=== PATIENT | female | born 2000 ===

== ENCOUNTER 2021-05-20 00:37 | Emergency (ER) | payer OTHER, SELFPAY ==
--- NOTE | ~2021-05-20 | XR_ITS ---
EXAMINATION: XR ANKLE, LEFT CLINICAL INFORMATION: Fall COMPARISON: None TECHNIQUE: AP, lateral, and mortise views of the left ankle. FINDINGS: No fracture or dislocation. The ankle mortise is congruent. No ankle joint effusion. The soft tissues are unremarkable. Small Achilles heel spur. XR/XR ankle LT min 3V IMPRESSION: Small Achilles heel spur. Otherwise unremarkable appearance of the left ankle.
--- NOTE | ~2021-05-20 | XR_ITS ---
EXAMINATION: XR HIP, RIGHT CLINICAL INFORMATION: Fall COMPARISON: None TECHNIQUE: Two views of the right hip. Frontal view of the pelvis. FINDINGS: No fracture or dislocation. The hips are well aligned. Joint spaces are maintained. The pelvic rim is intact. The sacroiliac joints and pubic symphysis are intact. Normal bowel gas pattern. XR/XR hip RT min 2V IMPRESSION: No fracture or malalignment.
[2021-05-20 00:39] VITALS: BP 149/63; PULSE 93; RESP 16; TEMP 36.6; O2SAT 100; BMI 29.2
--- NOTE | 2021-05-20 00:56 | ED_ITS ---
HPI - Fall General Chief Complaint: Fall Stated Complaint: fall outside; back & leg pain Time Seen by Provider: 05/20/21 00:52 Source: patient Mode of arrival: ambulatory Limitations: no limitations History of Present Illness MD complaint: fall Onset (ago): day(s) (2) Fall from: standing Fall witnessed: no Place fall occurred: home Loss of consciousness: none Prolonged down time: no Symptoms prior to fall: none Context: tripped/slipped (ice) Location of injury: other (right hip) Location of injury - extremities: left: ankle Severity: mild Quality: dull and aching Associated symptoms (after fall): denies Related Data Allergies Allergy/AdvReac Type Severity Reaction Status Date / Time Penicillins [PCN] Allergy Unknown Verified 05/20/21 00:44 Review of Systems Verdana 4l Review of Systems: Verdana 4d Verdana 4d Constitutional : No Fever, No Chills ENT/Mouth : No Ear Pain, No Hoarseness, No sore throat Eyes: No Eye Pain, No Swelling, No Redness, No Foreign Body Cardiovascular : No Chest Pain, No SOB Respiratory : No Cough, No Dyspnea GastrointestinalGastrointestinal : No Nausea, No Vomiting, No Diarrhea, No abdominal Pain Genitourinary : No Dysuria, No Hematuria Musculoskeletal : positive joint pain, No Myalgias, No Joint Swelling Skin : No Skin lacerations, No rash Neuro : No Weakness, No Numbness, No Loss of Consciousness, No Dizziness, No Headache Psych : No Anxiety/Panic, No Depression Heme/Lymph: no easy bruising, no Lymphadenopathy Endocrine : No Polyuria, No Polydipsia All other systems reviewed and are negative [facility] Past Medical History Attestation statement: The following information was validated with the patient. Medical History Hx of scoliosis Social History Social History (Updated 05/20/21 @ 01:14 by Amy Silva DO) Patient Tobacco Use Status: Never used Tobacco Advance Directives: No Advance Directives Information Provided: No Patient : No Physical Exam Verdana 4l Vital Signs: Verdana 4d Verdana 4d Vital Signs: Verdana 4d Verdana 4Bd Last Vital Signs Verdana 4d Exhibition Specialist New 4d Exhibition Specialist New 4d Temp 98 F 05/20/21 00:39 Exhibition Specialist New 4d Pulse 93 05/20/21 00:39 Exhibition Specialist New 4d Resp 16 05/20/21 00:39 BP 149/63 H 05/20/21 00:39 Pulse Ox 100 05/20/21 00:39 BMI result Body Mass Index 29.2 Appearance: Alert. Oriented X3. No acute distress. Eyes: Pupils equal, round and reactive to light. ENT: Pharynx normal. Neck: Normal inspection. Neck supple. CVS: Normal heart rate and rhythm. Pulses normal. Respiratory: No respiratory distress. Breath sounds normal. Abdomen: Soft and nontender. Back: no midline ttp Skin: Skin warm and dry. Normal skin color. Normal skin turgor. Extremities: No lower extremity edema. No calf ttp L ankle ttp over talus but otherwise no signs of trauma or swelling distal NV intact, R hip reports ttp along iliac crest Neuro: Oriented X 3. No motor deficit. No sensory deficit. Course Course Course Narrative: negative xrays stable for DC MDM - Fall MDM Narrative Medical decision making narrative: 20 yo female with fall 2 days ago c/o L ankle injury and R hip injury no head injury will need xrays of R hip and ankle has no back pain at this time no other injuries. Anticipate DC home if xrays negative Discharge Plan Discharge Clinical Impression: Hip strain Qualifiers: Encounter type: initial encounter Laterality: right Qualified Code(s): S76.011A - Strain of muscle, fascia and tendon of right hip, initial encounter Ankle strain Qualifiers: Encounter type: initial encounter Laterality: left Qualified Code(s): S96.912A - Strain of unspecified muscle and tendon at ankle and foot level, left foot, initial encounter Patient Disposition: Home, Self-Care Instructions: Ankle Strain (ED), Hip Sprain (ED) Additional Instructions: return to ED for any worsening symptoms or concerns negative fractures on xray Stand Alone Forms: Work/School Release
== END 2021-05-20 01:41 | disposition home or self-care (01) ==
PROVIDERS: Emergency Provider Emergency Medicine
DX: S96.912A Strain of unspecified muscle and tendon at ankle and foot level, left foot, initial encounter (principal); S76.011A Strain of muscle, fascia and tendon of right hip, initial encounter; S39.012A Strain of muscle, fascia and tendon of lower back, initial encounter; M25.572 Pain in left ankle and joints of left foot; M25.571 Pain in right ankle and joints of right foot; W01.0XXA Fall on same level from slipping, tripping and stumbling without subsequent striking against object, initial encounter; Y93.9 Activity, unspecified; Y92.9 Unspecified place or not applicable; Y99.9 Unspecified external cause status
CPT/HCPCS: 73502; 73610; 99283

== ENCOUNTER 2022-04-26 22:01 | Emergency (ER) | payer OTHER, SELFPAY ==
[2022-04-26 22:07] VITALS: BP 135/75; PULSE 116; RESP 20; TEMP 36.7; O2SAT 99; BMI 26.5
[2022-04-26 22:55] LABS: Influenza A Negative (Negative); Influenza B2 Negative (Negative)
[2022-04-26 22:56] LABS: COVID-19 Test Negative (Negative); IDNOW Serial# BCCEAD1C
[2022-04-26 22:57] LABS: IDNOW Serial# 6674DD1D
--- NOTE | 2022-04-26 23:49 | ED.URI ---
HPI - URI/Sore Throat General Chief Complaint: Upper Respiratory Symptoms Stated Complaint: fever,sore throat, 7 wks Time Seen by Provider: 04/26/22 23:09 Source: patient Mode of arrival: ambulatory Limitations: no limitations History of Present Illness HPI Narrative: Patient about 7 weeks complaining of cold symptoms started the yesterday with runny nose and sore throat occasional cough also complaining of slight pain in the right lower abdomen no vaginal discharge no fever or chills Related Data Allergies Allergy/AdvReac Type Severity Reaction Status Date / Time Penicillins [PCN] Allergy Unknown Verified 05/20/21 00:44 Review of Systems Review of Systems: Yes all other systems are reviewed and are negative [facility] Past Medical History Medical History Hx of scoliosis Social History Social History Patient Tobacco Use Status: Never used Tobacco Advance Directives: No Physical Exam Vital Signs: Vital Signs: Last Vital Signs Temp 99.0 F 04/27/22 01:03 Pulse 109 H 04/27/22 01:03 Resp 18 04/27/22 01:03 BP 127/57 L 04/27/22 01:03 Pulse Ox 100 04/27/22 01:03 O2 Del Method 04/27/22 01:03 BMI result Body Mass Index 26.5 Appearance: Alert. Oriented X3. No acute distress. ENT: Pharynx normal. Oral Mucosa moist clear rhinorrhea Neck: Normal inspection. Neck supple. CVS: Normal heart rate and rhythm. Pulses normal. Respiratory: No respiratory distress. Equal air entry bilateral, no wheezing/rales/rhonchi abd; soft slight tenderness right mid abdomen no rebound tenderness or guarding McBurney signs negative Skin: Skin warm and dry. Normal skin color. Normal skin turgor. Extremities: No lower extremity edema. Neuro: Oriented X 3. Medical Decision Making Lab Data MDM Lab Attestation statement: I reviewed the patient's lab results. Labs: Lab Results 04/26/22 04/26/22 04/26/22 Range/Units 22:13 22:13 22:13 Urine Color Urine Appearance Urine pH (5.0-9.0) Ur Specific [place] (1.005-1.025) Urine Protein (Neg-Trace) mg/dL Urine Glucose (UA) (Negative) mg/dL Urine Ketones (Negative) mg/dL Urine Blood (Negative) Urine Nitrite (Negative) Ur Leukocyte Esterase (Negative) Urine RBC (0-2) /HPF Urine WBC (0-5) /HPF Ur Squamous Epith Cells (0-2) /HPF Urine Bacteria (None Seen) Hyaline Casts (0-2) /LPF COVID-19 ([facility]) Negative (Negative) COVID-19 Clin Com See Note Influenza Type A (IVONE) Negative (Negative) Influenza Type B (IVONE) Negative (Negative) Influenza A & B Note See Note S. pyogenes GrpA IVONE Negative (Negative) 04/27/22 Range/Units 00:23 Urine Color Yellow Urine Appearance Clear Urine pH 5.5 (5.0-9.0) Ur Specific [place] 1.020 (1.005-1.025) Urine Protein Trace (Neg-Trace) mg/dL Urine Glucose (UA) Negative (Negative) mg/dL Urine Ketones >=160 (Negative) mg/dL Urine Blood Negative (Negative) Urine Nitrite Negative (Negative) Ur Leukocyte Esterase Small (1+) H (Negative) Urine RBC 0-2 (0-2) /HPF Urine WBC 0-5 (0-5) /HPF Ur Squamous Epith Cells 3-5 (0-2) /HPF Urine Bacteria 1+ (None Seen) Hyaline Casts 0-2 (0-2) /LPF COVID-19 ([facility]) (Negative) COVID-19 Clin Com Influenza Type A (IVONE) (Negative) Influenza Type B (IVONE) (Negative) Influenza A & B Note S. pyogenes GrpA IVONE (Negative) Discharge Plan Discharge Clinical Impression: Viral infection Patient Disposition: Home, Self-Care Instructions: Viral Syndrome (ED) Additional Instructions: Drink plenty of fluids social distancing as advised Take Tylenol for fever/ pain
[2022-04-27 00:30] LABS: Appearance Urine Clear; Color Urine Yellow; Glucose Urine UA Negative (Negative); Leukocyte Esterase Urine Small (1+) (Negative); Nitrite Urine Negative (Negative); PH 5.5 (5.0-9.0); UMIC TRIGGER UACC YES; Urine Blood Negative (Negative); Urine Ketones >=160 mg/dL (Negative); Urine Protein Trace mg/dL (Neg-Trace)
[2022-04-27 00:42] LABS: Bacteria Urine 1+ (None Seen); Hyaline Casts Urine 0-2 /LPF (0-2); RBC Urine 0-2 /HPF (0-2); UACC Culture Trigger YES; WBC Urine 0-5 /HPF (0-5)
[2022-04-27 01:03] VITALS: BP 127/57; PULSE 109; RESP 18; TEMP 37.2; O2SAT 100
[2022-04-27 01:39] LABS: IDNOW Serial# 6674DD1D; Strep A Nucleic Acid Negative (Negative)
== END 2022-04-27 02:47 | disposition home or self-care (01) ==
PROVIDERS: Emergency Provider Internal Medicine; PCP Pediatrics
DX: O98.511 Other viral diseases complicating pregnancy, first trimester (principal); R50.9 Fever, unspecified; Z3A.01 Less than 8 weeks gestation of pregnancy; Z20.822 Contact with and (suspected) exposure to COVID-19
CPT/HCPCS: 81001; 87086; 87502; 87635; 87651; 99283

== ENCOUNTER 2022-05-01 14:16 | Emergency (ER) | payer OTHER, SELFPAY ==
--- NOTE | ~2022-05-01 | US_ITS ---
EXAMINATION: US OBSTETRICAL ULTRASOUND CLINICAL INFORMATION: Vaginal spotting at 7 weeks of gestation. LMP of 03/12/2022. COMPARISON: None. TECHNIQUE: Sonographic imaging of the pelvis performed using transabdominal and transvaginal transducers. FINDINGS: The anteflexed, anteverted uterus and cervix have normal echotexture. No evidence of uterine leiomyoma. Within the endometrium, there is a well-formed gestational sac, normal 0.3 cm diameter yolk sac and single pole. The pole has a heart rate of 70 - 74 bpm and crown-rump length of 0.57 cm, corresponding to an estimated gestational age of 6 weeks, 3 days and estimated date of delivery of 12/22/2022. No evidence of subchorionic hemorrhage. The ovaries have normal size and echotexture. The right ovary is 2.7 x 2.1 x 2.6 cm and left ovary 2.5 x 1.7 x 2.2 cm. Color Doppler images show grossly normal flow within each ovary. No adnexal mass. No pelvic free fluid. US/US OB <= 14 weeks fetus IMPRESSION: * Single viable intrauterine gestation is present. The estimated gestational age is 6 weeks, 3 days. * No evidence of subchorionic hemorrhage. * bradycardia is noted. bradycardia can be associated with an increased likelihood of first trimester demise.
[2022-05-01 14:17] VITALS: BP 154/76; PULSE 98; RESP 18; TEMP 36.3; O2SAT 100; BMI 26.7
--- NOTE | 2022-05-01 14:17 | ED_ITS ---
HPI - General Chief complaint: General Medical <RAFAEL Delong - Last Filed: 05/01/22 14:21> Stated complaint: 7 weeks preg/spotting <RAFAEL Delong - Last Filed: 05/01/22 14:21> Time Seen by Provider: 05/01/22 14:39 <RAFAEL Delong - Last Filed: 05/01/22 14:21> Source: patient <RAFAEL Almodovar Last Filed: 05/01/22 17:36> Mode of arrival: ambulatory <RAFAEL Almodovar Last Filed: 05/01/22 17:36> Limitations: no limitations <RAFAEL Almodovar Last Filed: 05/01/22 17:36> History of Present Illness HPI Narrative: Patient is a 21 year old assigned female at with a history of miscarriage presenting to the emergency department today with vaginal spotting. Patient states that she is 7 weeks and this morning she woke up with a small amount of bloody vaginal spotting. Patient states that she has a history of a miscarriage. Patient states that she does have an OB she follows with an has an appointment next Sunday. Patient denies any dizziness, lightheadedness, abdominal pain, nausea, vomiting, fever, chills, blurry vision, double vision, loss of vision, chest pain, difficulty breathing, shortness of breath, back pain, night sweats, pain with urination, increased urinary frequency, increased urinary urgency, blood in her stool, syncope or a near syncopal episode, recent trauma or falls, bowel incontinence, bladder incontinence, bowel retention, bladder retention, or any other complaints at this time. <RAFAEL Almodovar - Last Filed: 05/01/22 17:36> MD Complaint: vaginal bleeding <RAFAEL Almodovar Last Filed: 05/01/22 17:36> Onset (ago): hour(s) <RAFAEL Almodovar Last Filed: 05/01/22 17:36> Pain Consistency: intermittent and now resolved <RAFAEL Almodovar Last Filed: 05/01/22 17:36> Severity: mild <RAFAEL Almodovar Last Filed: 05/01/22 17:36> Severity scale (1-10): 1 <RAFAEL Almodovar - Last Filed: 05/01/22 17:36> Relieving factors: none <RAFAEL Almodovar - Last Filed: 05/01/22 17:36> Exacerbating factors: none <RAFAEL Almodovar - Last Filed: 05/01/22 17:36> Associated symptoms: vaginal bleeding (spotting - now resolved) <RAFAEL Almodovar - Last Filed: 05/01/22 17:36> Vaginal bleeding: light <RAFAEL Almodovar - Last Filed: 05/01/22 17:36> Related Data Allergies/Adverse reactions: Allergies Allergy/AdvReac Type Severity Reaction Status Date / Time Penicillins [PCN] Allergy Unknown Verified 05/20/21 00:44 <RAFAEL Delong - Last Filed: 05/01/22 14:21> Review of Systems Constitutional: Constitutional: Reports no additional constitutional complaints, Denies chills, Denies fever(s) and Denies night sweats <RAFAEL Almodovar - Last Filed: 05/01/22 17:36> Eyes: Eyes: Reports no additional eye complaints, Denies blurry vision, Denies change in vision, Denies diplopia, Denies eye discharge, Denies loss of vision and Denies eye pain <RAFAEL Almodovar - Last Filed: 05/01/22 17:36> ENT: Denies dizziness <RAFAEL Almodovar - Last Filed: 05/01/22 17:36> Cardiovascular: Cardiovascular: Reports no additional cardiovascular complaints, Denies chest pain, Denies lightheadedness, Denies Loss of Consciousness and Denies dyspnea <RAFAEL Almodovar - Last Filed: 05/01/22 17:36> Respiratory: Respiratory: Reports no additional respiratory complaints and Denies dyspnea <RAFAEL Almodovar - Last Filed: 05/01/22 17:36> Gastrointestinal: Gastrointestinal: Reports no additional gastrointestinal complaints, Denies abdominal pain, Denies melena, Denies hematochezia, Denies change in bowel habits and Denies change in stool character <RAFAEL Almodovar - Last Filed: 05/01/22 17:36> Genitourinary: Genitourinary: Denies urinary frequency, Denies dysuria, Denies urinary incontinence, Denies urinary hesitancy and Denies urinary urgency <RAFAEL Almodovar - Last Filed: 05/01/22 17:36> Comments: light vaginal spotting <RAFAEL Almodovar - Last Filed: 05/01/22 17:36> Musculoskeletal: Musculoskeletal: Reports no additional musculoskeletal complaints, Denies numbness and Denies tingling <RAFAEL Almodovar - Last Filed: 05/01/22 17:36> Neurologic: Denies dizziness, Denies loss of vision, Denies numbness and Denies tingling <RAFAEL Almodovar - Last Filed: 05/01/22 17:36> Psychiatric: Psychiatric: Reports no additional psychiatric complaints <RAFAEL Almodovar - Last Filed: 05/01/22 17:36> Endocrine: Endocrine: Reports no additional endocrine complaints <RAFAEL Almodovar - Last Filed: 05/01/22 17:36> Hematologic/Lymphatic: Hematologic/Lymphatic: Reports no additional hematologic/lymphatic complaints <RAFAEL Almodovar - Last Filed: 05/01/22 17:36> Allergic/Immunologic: Allergic/Immunologic: Reports no additional allergic/immunologic complaints <RAFAEL Almodovar - Last Filed: 05/01/22 17:36> PMFSH Past Medical History Attestation statement: The following information was validated with the patient. <RAFAEL Almodovar - Last Filed: 05/01/22 17:36> Source: old records reviewed and nursing notes reviewed <RAFAEL Almodovar - Last Filed: 05/01/22 17:36> Medical History: Medical History Hx of scoliosis <RAFAEL Delong - Last Filed: 05/01/22 14:21> Social History Social History: Social History Patient Tobacco Use Status: Never used Tobacco Advance Directives: No Advance Directives Information Provided: No <RAFAEL Delong - Last Filed: 05/01/22 14:21> Physical Exam Vital Signs: Vital Signs: Last Vital Signs Temp 97.4 F 05/01/22 14:17 Pulse 80 05/01/22 17:16 Resp 18 05/01/22 14:17 BP 101/60 05/01/22 17:16 Pulse Ox 100 05/01/22 17:16 O2 Del Method 05/01/22 17:16 BMI result Body Mass Index 26.7 <RAFAEL Delong - Last Filed: 05/01/22 14:21> Vital Signs: Last Vital Signs Temp 97.4 F 05/01/22 14:17 Pulse 80 05/01/22 17:16 Resp 18 05/01/22 14:17 BP 101/60 05/01/22 17:16 Pulse Ox 100 05/01/22 17:16 O2 Del Method 05/01/22 17:16 BMI result Body Mass Index 26.7 <RAFAEL Almodovar - Last Filed: 05/01/22 17:36> Const: General: cooperative, no acute distress, alert and awake <RAFAEL Almodovar - Last Filed: 05/01/22 17:36> Nutritional Appearance: well nourished <RAFAEL Almodovar - Last Filed: 05/01/22 17:36> Orientation/consciousness: patient oriented x3 <RAFAEL Almodovar - Last Filed: 05/01/22 17:36> Limitations: no limitations <RAFAEL Almodovar - Last Filed: 05/01/22 17:36> HEENT: Head: Yes normal to inspection and Yes atraumatic <RAFAEL Almodovar - Last Filed: 05/01/22 17:36> Ears: hearing grossly normal bilaterally and external ears normal <RAFAEL Almodovar - Last Filed: 05/01/22 17:36> General nose exam: Normal external nose present, no nasal discharge noted and no epistaxis <RAFAEL Almodovar - Last Filed: 05/01/22 17:36> Face and sinus: Yes normal facial exam, No abrasion and No laceration <RAFAEL Almodovar - Last Filed: 05/01/22 17:36> Mouth: Normal oral and palatal mucosa present, no drooling and no muffled voice <RAFAEL Almodovar - Last Filed: 05/01/22 17:36> Eyes: General: appearance normal, both eyes and all related structures <RAFAEL Almodovar - Last Filed: 05/01/22 17:36> Periorbital: periorbital findings normal <Eusebia Francisco PA - Last Filed: 05/01/22 17:36> Eyelids: Yes eyelids normal <Eusebia Francisco PA - Last Filed: 05/01/22 17:36> Conjunctivae: conjunctivae normal <Eusebia Francisco PA - Last Filed: 05/01/22 17:36> Pupils: Equal, round and reactive pupils present <Eusebia Francisco PA - Last Filed: 05/01/22 17:36> EOM: EOMs intact bilaterally <Eusebia Francisco PA - Last Filed: 05/01/22 17:36> Neck: Neck: Yes normal visual inspection, Yes full ROM and Yes no lymphadenopathy <Eusebia Francisco PA - Last Filed: 05/01/22 17:36> Chest: Chest palpation & inspection: normal inspection of the chest <Eusebia Francisco PA - Last Filed: 05/01/22 17:36> Resp: Effort & Inspection: normal respiratory effort and able to speak in complete sentences <Eusebia Francisco PA - Last Filed: 05/01/22 17:36> Auscultation: clear to auscultation bilaterally <Eusebia Francisco PA - Last Filed: 05/01/22 17:36> Cardio: Rate: regular rate <Eusebia Francisco PA - Last Filed: 05/01/22 17:36> Rhythm: regular rhythm <Eusebia Francisco PA - Last Filed: 05/01/22 17:36> GI: Inspection: Yes normal to inspection <Eusebia Francisco PA - Last Filed: 05/01/22 17:36> Palpation (GI): Soft to palpation, not firm, nontender and no guarding <Eusebia Francisco PA - Last Filed: 05/01/22 17:36> Neuro: General: patient oriented x3 and moves all extremities <Esuebia Francisco PA - Last Filed: 05/01/22 17:36> Cranial nerves: Yes Equal, round and reactive pupils present <Eusebia Francisco PA - Last Filed: 05/01/22 17:36> Cognition (Neuro): normal cognition <Eusebia Francisco PA - Last Filed: 05/01/22 17:36> Motor exam (neuro): 5/5 motor strength present throughout <RAFAEL Almodovar - Last Filed: 05/01/22 17:36> Sensory Exam: Normal double simultaneous stimulation for sensation <RAFAEL Almodovar - Last Filed: 05/01/22 17:36> Coordination: [id number] test normal <RAFAEL Almodovar - Last Filed: 05/01/22 17:36> Extrem: General: Yes normal to inspection, Yes full ROM and Yes capillary refill normal <RAFAEL Almodovar - Last Filed: 05/01/22 17:36> Psych: Appearance: grossly normal <RAFAEL Almodovar - Last Filed: 05/01/22 17:36> Mental Status: mental status grossly normal <RAFAEL Almodovar - Last Filed: 05/01/22 17:36> Affect: normal affect <RAFAEL Almodovar - Last Filed: 05/01/22 17:36> Attitude: cooperative <RAFAEL Almodovar - Last Filed: 05/01/22 17:36> Thought process: Normal thought process present <RAFAEL Almodovar - Last Filed: 05/01/22 17:36> Thought content: Normal thought content present <RAFAEL Almodovar - Last Filed: 05/01/22 17:36> Insight: Good insight present (Psych) <RAFAEL Almodovar - Last Filed: 05/01/22 17:36> Course Course Course Narrative: RME--21yo F w/PMHx @7 weeks gestation presenting to ED complaining of vaginal spotting since this morning. Admits to history of miscarriage in the past. Denies filling pads, abdominal pain, nausea, vomiting, vaginal discharge LMP 03/12 Labs, hCG, UA, Rh, Ob ultrasound ordered <RAFAEL Delong - Last Filed: 05/01/22 14:21> Medical Decision Making Medical Decision Making MDM Narrative: Patient is a 21 year old assigned female at with a history of miscarriage presenting to the emergency department today with light vaginal spotting. Patient's physical exam was unremarkable. Patient's blood work was unremarkable. Patient's urine showed no acute process. Patient's US showed an intrauterine however, it showed a slowed heart rate. Patient states that she has gotten a rhogam shot previously. I explained my physical exam findings as well as all test results to the patient. I answered all questions asked by the patient. I stressed the importance of the patient taking her medication as prescribed. I stressed the importance of the patient following up with her primary care provider and her OBGYN. I stressed the importance of the patient returning to the emergency department immediately if her symptoms were to worsen or if she were to develop any dizziness, shortness of breath, difficulty breathing, chest pain, blurry vision, loss of vision, nausea, vomiting, abdominal pain, fever, chills, back pain, or any other complaints. Patient verbalized agreement and understanding with this treatment plan and discharge. <RAFAEL Almodovar - Last Filed: 05/01/22 17:36> Differential Diagnosis Differential Diagnoses: The differential diagnosis associated with the presentation includes <RAFAEL Almodovar - Last Filed: 05/01/22 17:36> vaginal bleeding, threatened miscarriage <RAFAEL Almodovar - Last Filed: 05/01/22 17:36> Lab Data MDM Lab Attestation statement: I reviewed the patient's lab results. <RAFAEL Almodovar - Last Filed: 05/01/22 17:36> Result Diagrams: 05/01/22 14:28 05/01/22 14:28 <RAFAEL Delong - Last Filed: 05/01/22 14:21> Labs: Lab Results 05/01/22 05/01/22 05/01/22 Range/Units 14:28 14:28 14:28 WBC 7.9 (4.8-10.8) X10*3/uL RBC 4.29 (4.20-5.50) X10*6/uL Hgb 12.8 (12.0-16.0) g/dl Hct 36.4 L (37.0-47.0) % MCV 84.8 (80.0-98.0) fL MCH 29.8 (27.0-33.0) pg MCHC 35.2 H (31.0-35.0) g/dl RDW 11.3 (11.0-16.0) % Plt Count 282 (160-400) X10*3/uL MPV 9.8 (9.4-12.3) fL Immature Gran % (Auto) 0.4 (0.0-0.4) % Neut % (Auto) 62.7 (45-73) % Lymph % (Auto) 28.0 (20-40) % [place] % (Auto) 7.3 (2-11) % Eos % (Auto) 1.3 (0-4) % Baso % (Auto) 0.3 (0-2) % Lymph # (Auto) 2.2 (1.2-4.9) X10*3/uL [place] # (Auto) 0.6 (0.1-1.2) X10*3/uL Eos # (Auto) 0.1 (0.0-0.4) X10*3/uL Baso # (Auto) 0.0 (0.0-0.2) X10*3/uL Abs Immat Gran (auto) 0.03 (0.00-0.03) X10*3/uL Absolute Neuts (auto) 5.0 (2.0-8.3) x10*3/uL Absolute Nucleated RBC 0.000 (0.0-0.012) X10*3/uL Nucleated RBC % (auto) 0.0 (0.0-0.2) /100WBC Sodium 138 (135-145) mmol/L Potassium 3.7 (3.3-5.1) mmol/L Chloride 108 (96-108) mmol/L Carbon Dioxide 23 (22-29) mmol/L Anion Gap 11 L (12-20) BUN 5 L (9-16) mg/dL Creatinine 0.56 (0.5-1.4) mg/dL Estim Creat Clear Calc 131.9 Estimated GFR > 60 Random Glucose 80 (60-115) mg/dL Calcium 9.4 (8.4-10.2) mg/dL Total Bilirubin 0.8 (0.0-1.0) mg/dL Direct Bilirubin 0.3 (0.0-0.5) mg/dL AST 11 (5-31) U/L ALT 8 (0-31) U/L Alkaline Phosphatase 57 (39-117) U/L Total Protein 7.2 (6.5-8.0) g/dL Albumin 4.5 (3.5-5.0) g/dL Lipase 19 (8-78) U/L Beta HCG, Quant 83058 mIU/mL Urine Color Urine Appearance Urine pH (5.0-9.0) Ur Specific [place] (1.005-1.025) Urine Protein (Neg-Trace) mg/dL Urine Glucose (UA) (Negative) mg/dL Urine Ketones (Negative) mg/dL Urine Blood (Negative) Urine Nitrite (Negative) Ur Leukocyte Esterase (Negative) Urine RBC (0-2) /HPF Urine WBC (0-5) /HPF Ur Squamous Epith Cells (0-2) /HPF Urine Bacteria (None Seen) Hyaline Casts (0-2) /LPF Blood Type O Negative 05/01/22 Range/Units 14:28 WBC (4.8-10.8) X10*3/uL RBC (4.20-5.50) X10*6/uL Hgb (12.0-16.0) g/dl Hct (37.0-47.0) % MCV (80.0-98.0) fL MCH (27.0-33.0) pg MCHC (31.0-35.0) g/dl RDW (11.0-16.0) % Plt Count (160-400) X10*3/uL MPV (9.4-12.3) fL Immature Gran % (Auto) (0.0-0.4) % Neut % (Auto) (45-73) % Lymph % (Auto) (20-40) % [place] % (Auto) (2-11) % Eos % (Auto) (0-4) % Baso % (Auto) (0-2) % Lymph # (Auto) (1.2-4.9) X10*3/uL [place] # (Auto) (0.1-1.2) X10*3/uL Eos # (Auto) (0.0-0.4) X10*3/uL Baso # (Auto) (0.0-0.2) X10*3/uL Abs Immat Gran (auto) (0.00-0.03) X10*3/uL Absolute Neuts (auto) (2.0-8.3) x10*3/uL Absolute Nucleated RBC (0.0-0.012) X10*3/uL Nucleated RBC % (auto) (0.0-0.2) /100WBC Sodium (135-145) mmol/L Potassium (3.3-5.1) mmol/L Chloride (96-108) mmol/L Carbon Dioxide (22-29) mmol/L Anion Gap (12-20) BUN (9-16) mg/dL Creatinine (0.5-1.4) mg/dL Estim Creat Clear Calc Estimated GFR Random Glucose (60-115) mg/dL Calcium (8.4-10.2) mg/dL Total Bilirubin (0.0-1.0) mg/dL Direct Bilirubin (0.0-0.5) mg/dL AST (5-31) U/L ALT (0-31) U/L Alkaline Phosphatase (39-117) U/L Total Protein (6.5-8.0) g/dL Albumin (3.5-5.0) g/dL Lipase (8-78) U/L Beta HCG, Quant mIU/mL Urine Color Yellow Urine Appearance Clear Urine pH 6.5 (5.0-9.0) Ur Specific [place] <= 1.005 (1.005-1.025) Urine Protein Negative (Neg-Trace) mg/dL Urine Glucose (UA) Negative (Negative) mg/dL Urine Ketones Negative (Negative) mg/dL Urine Blood Trace H (Negative) Urine Nitrite Negative (Negative) Ur Leukocyte Esterase Negative (Negative) Urine RBC 0-2 (0-2) /HPF Urine WBC 0-5 (0-5) /HPF Ur Squamous Epith Cells 0-2 (0-2) /HPF Urine Bacteria None Seen (None Seen) Hyaline Casts 0-2 (0-2) /LPF Blood Type <RAFAEL Delong - Last Filed: 05/01/22 14:21> Lab Results 05/01/22 05/01/22 05/01/22 Range/Units 14:28 14:28 14:28 WBC 7.9 (4.8-10.8) X10*3/uL RBC 4.29 (4.20-5.50) X10*6/uL Hgb 12.8 (12.0-16.0) g/dl Hct 36.4 L (37.0-47.0) % MCV 84.8 (80.0-98.0) fL MCH 29.8 (27.0-33.0) pg MCHC 35.2 H (31.0-35.0) g/dl RDW 11.3 (11.0-16.0) % Plt Count 282 (160-400) X10*3/uL MPV 9.8 (9.4-12.3) fL Immature Gran % (Auto) 0.4 (0.0-0.4) % Neut % (Auto) 62.7 (45-73) % Lymph % (Auto) 28.0 (20-40) % [place] % (Auto) 7.3 (2-11) % Eos % (Auto) 1.3 (0-4) % Baso % (Auto) 0.3 (0-2) % Lymph # (Auto) 2.2 (1.2-4.9) X10*3/uL [place] # (Auto) 0.6 (0.1-1.2) X10*3/uL Eos # (Auto) 0.1 (0.0-0.4) X10*3/uL Baso # (Auto) 0.0 (0.0-0.2) X10*3/uL Abs Immat Gran (auto) 0.03 (0.00-0.03) X10*3/uL Absolute Neuts (auto) 5.0 (2.0-8.3) x10*3/uL Absolute Nucleated RBC 0.000 (0.0-0.012) X10*3/uL Nucleated RBC % (auto) 0.0 (0.0-0.2) /100WBC Sodium 138 (135-145) mmol/L Potassium 3.7 (3.3-5.1) mmol/L Chloride 108 (96-108) mmol/L Carbon Dioxide 23 (22-29) mmol/L Anion Gap 11 L (12-20) BUN 5 L (9-16) mg/dL Creatinine 0.56 (0.5-1.4) mg/dL Estim Creat Clear Calc 131.9 Estimated GFR > 60 Random Glucose 80 (60-115) mg/dL Calcium 9.4 (8.4-10.2) mg/dL Total Bilirubin 0.8 (0.0-1.0) mg/dL Direct Bilirubin 0.3 (0.0-0.5) mg/dL AST 11 (5-31) U/L ALT 8 (0-31) U/L Alkaline Phosphatase 57 (39-117) U/L Total Protein 7.2 (6.5-8.0) g/dL Albumin 4.5 (3.5-5.0) g/dL Lipase 19 (8-78) U/L Beta HCG, Quant 69423 mIU/mL Urine Color Urine Appearance Urine pH (5.0-9.0) Ur Specific [place] (1.005-1.025) Urine Protein (Neg-Trace) mg/dL Urine Glucose (UA) (Negative) mg/dL Urine Ketones (Negative) mg/dL Urine Blood (Negative) Urine Nitrite (Negative) Ur Leukocyte Esterase (Negative) Urine RBC (0-2) /HPF Urine WBC (0-5) /HPF Ur Squamous Epith Cells (0-2) /HPF Urine Bacteria (None Seen) Hyaline Casts (0-2) /LPF Blood Type O Negative 05/01/22 Range/Units 14:28 WBC (4.8-10.8) X10*3/uL RBC (4.20-5.50) X10*6/uL Hgb (12.0-16.0) g/dl Hct (37.0-47.0) % MCV (80.0-98.0) fL MCH (27.0-33.0) pg MCHC (31.0-35.0) g/dl RDW (11.0-16.0) % Plt Count (160-400) X10*3/uL MPV (9.4-12.3) fL Immature Gran % (Auto) (0.0-0.4) % Neut % (Auto) (45-73) % Lymph % (Auto) (20-40) % [place] % (Auto) (2-11) % Eos % (Auto) (0-4) % Baso % (Auto) (0-2) % Lymph # (Auto) (1.2-4.9) X10*3/uL [place] # (Auto) (0.1-1.2) X10*3/uL Eos # (Auto) (0.0-0.4) X10*3/uL Baso # (Auto) (0.0-0.2) X10*3/uL Abs Immat Gran (auto) (0.00-0.03) X10*3/uL Absolute Neuts (auto) (2.0-8.3) x10*3/uL Absolute Nucleated RBC (0.0-0.012) X10*3/uL Nucleated RBC % (auto) (0.0-0.2) /100WBC Sodium (135-145) mmol/L Potassium (3.3-5.1) mmol/L Chloride (96-108) mmol/L Carbon Dioxide (22-29) mmol/L Anion Gap (12-20) BUN (9-16) mg/dL Creatinine (0.5-1.4) mg/dL Estim Creat Clear Calc Estimated GFR Random Glucose (60-115) mg/dL Calcium (8.4-10.2) mg/dL Total Bilirubin (0.0-1.0) mg/dL Direct Bilirubin (0.0-0.5) mg/dL AST (5-31) U/L ALT (0-31) U/L Alkaline Phosphatase (39-117) U/L Total Protein (6.5-8.0) g/dL Albumin (3.5-5.0) g/dL Lipase (8-78) U/L Beta HCG, Quant mIU/mL Urine Color Yellow Urine Appearance Clear Urine pH 6.5 (5.0-9.0) Ur Specific [place] <= 1.005 (1.005-1.025) Urine Protein Negative (Neg-Trace) mg/dL Urine Glucose (UA) Negative (Negative) mg/dL Urine Ketones Negative (Negative) mg/dL Urine Blood Trace H (Negative) Urine Nitrite Negative (Negative) Ur Leukocyte Esterase Negative (Negative) Urine RBC 0-2 (0-2) /HPF Urine WBC 0-5 (0-5) /HPF Ur Squamous Epith Cells 0-2 (0-2) /HPF Urine Bacteria None Seen (None Seen) Hyaline Casts 0-2 (0-2) /LPF Blood Type <RAFAEL Almodovar - Last Filed: 05/01/22 17:36> Radiology Impression Discussion of test interpretation with radiology: I have reviewed the radiologist's reading. <RAFAEL Almodovar - Last Filed: 05/01/22 17:36> Radiologist Impression: My interpretation is in agreement with the radiologist's impression of this imaging study. EXAMINATION:? US OBSTETRICAL ULTRASOUND CLINICAL INFORMATION:? Vaginal spotting at 7 weeks of gestation. LMP of 03/12/2022. COMPARISON:? None.? TECHNIQUE: Sonographic imaging of the pelvis performed using transabdominal and transvaginal transducers. ? FINDINGS: The anteflexed, anteverted uterus and cervix have normal echotexture. No evidence of uterine leiomyoma. Within the endometrium, there is a well-formed gestational sac, normal 0.3 cm diameter yolk sac and single pole. The pole has a heart rate of 70 - 74 bpm and crown-rump length of 0.57 cm, corresponding to an estimated gestational age of 6 weeks, 3 days and estimated date of delivery of 12/22/2022. No evidence of subchorionic hemorrhage. The ovaries have normal size and echotexture. The right ovary is 2.7 x 2.1 x 2.6 cm and left ovary 2.5 x 1.7 x 2.2 cm. Color Doppler images show grossly normal flow within each ovary. No adnexal mass. No pelvic free fluid. US/US OB <= 14 weeks fetus IMPRESSION: *? Single viable intrauterine gestation is present. The estimated gestational age is 6 weeks, 3 days. *? No evidence of subchorionic hemorrhage. *? bradycardia is noted. bradycardia can be associated with an increased likelihood of first trimester demise. Dictated By: Satish aKpoor MD Signed By: Electronically signed by Satish Kapoor MD 05/01/22 2261 <RAFAEL Almodovar - Last Filed: 05/01/22 17:36> Discharge Plan Discharge Clinical Impression: <RAFAEL Delong - Last Filed: 05/01/22 14:21> Patient Disposition: Home, Self-Care <RAFAEL Delong - Last Filed: 05/01/22 14:21> Instructions: (ED) <RAFAEL Delong - Last Filed: 05/01/22 14:21> Additional Instructions: Follow up with your primary care provider and your OBGYN. Return to the emergency department immediately if your symptoms worsen or if you develop any dizziness, shortness of breath, difficulty breathing, chest pain, blurry vision, loss of vision, nausea, vomiting, abdominal pain, fever, chills, back pain, or any other complaints. <RAFAEL Delong - Last Filed: 05/01/22 14:21> Referrals: [facility] [place] Family Medicine [Provider Group] (Call to establish and follow up with a primary care provider. If you already have a primary care provider, please follow up with them. ) [facility] [place] Primary Care, [place] [Provider Group] (Call to establish and follow up with a primary care provider. If you already have a primary care provider, please follow up with them. ) [facility] [place] Primary [facility],[place] [Provider Group] (Call to establish and follow up with a primary care provider. If you already have a primary care provider, please follow up with them. ) <RAFAEL Delong - Last Filed: 05/01/22 14:21> Stand Alone Forms: Work/School Release <RAFAEL Delong - Last Filed: 05/01/22 14:21> Interventions: ED Discharge Assessment Last Done: 05/01/22 17:24 <RAFAEL Delong - Last Filed: 05/01/22 14:21> Discharge Date/Time: 05/01/22 17:25 <RAFAEL Delong - Last Filed: 05/01/22 14:21> Print Language: Bengali <RAFAEL Delong - Last Filed: 05/01/22 14:21>
[2022-05-01 14:33] LABS: MANUAL DIFF FLAG NO
[2022-05-01 14:34] LABS: Basophils Percent Auto 0.3 % (0-2); Eosinophils Absolute Auto 0.1 X10*3/uL (0.0-0.4); Eosinophils Percent Auto 1.3 % (0-4); Hematocrit 36.4 % (37.0-47.0); Hemoglobin 12.8 g/dl (12.0-16.0); Imm Gran Abs Auto 0.03 X10*3/uL (0.00-0.03); Imm Gran Pct Auto 0.4 % (0.0-0.4); Lymphocytes Absolute Auto 2.2 X10*3/uL (1.2-4.9); Mean Corpuscular HGB Conc 35.2 g/dl (31.0-35.0); Mean Corpuscular Hemoglobin 29.8 pg (27.0-33.0); Mean Corpuscular Volume 84.8 fL (80.0-98.0); Mean Platelet Volume 9.8 fL (9.4-12.3); Monocytes Absolute Auto 0.6 X10*3/uL (0.1-1.2); Monocytes Percent Auto 7.3 % (2-11); Neutrophils Percent Auto 62.7 % (45-73); Platelet Count 282 X10*3/uL (160-400); Red Blood Count 4.29 X10*6/uL (4.20-5.50); Red Cell Distribution Width 11.3 % (11.0-16.0); White Blood Count 7.9 X10*3/uL (4.8-10.8)
[2022-05-01 14:36] LABS: Appearance Urine Clear; Color Urine Yellow; Glucose Urine UA Negative (Negative); Leukocyte Esterase Urine Negative (Negative); Nitrite Urine Negative (Negative); PH 6.5 (5.0-9.0); Specific Gravity - Urine <= 1.005 (1.005-1.025); UMIC TRIGGER UACC YES; Urine Blood Trace (Negative); Urine Ketones Negative (Negative); Urine Protein Negative (Neg-Trace)
[2022-05-01 14:54] LABS: Alanine Aminotransferase 8 U/L (0-31); Albumin Level 4.5 g/dL (3.5-5.0); Alkaline Phosphatase 57 U/L (39-117); Anion Gap 11 (12-20); Aspartate Amino Transferase 11 U/L (5-31); Bilirubin Direct 0.3 mg/dL (0.0-0.5); Bilirubin Total 0.8 mg/dL (0.0-1.0); Blood Urea Nitrogen 5 mg/dL (9-16); Calcium 9.4 mg/dL (8.4-10.2); Carbon Dioxide 23 mmol/L (22-29); Chloride 108 mmol/L (96-108); Creatinine Clr Calc Pharmacy 131.9; Estimated Glomerular Filt Rate > 60; Glucose Random 80 mg/dL (60-115); Lipase 19 U/L (8-78); Potassium 3.7 mmol/L (3.3-5.1); Sodium 138 mmol/L (135-145); Total Protein 7.2 g/dL (6.5-8.0)
[2022-05-01 15:17] LABS: HCG Quantitative 30794 mIU/mL
[2022-05-01 15:44] LABS: Bacteria Urine None Seen (None Seen); Hyaline Casts Urine 0-2 /LPF (0-2); RBC Urine 0-2 /HPF (0-2); Squamous Epithelial Cell Urine 0-2 /HPF (0-2); WBC Urine 0-5 /HPF (0-5)
[2022-05-01 17:16] VITALS: BP 101/60; PULSE 80; O2SAT 100
== END 2022-05-01 17:25 | disposition home or self-care (01) ==
PROVIDERS: Physician Assistant; Emergency Provider Student in an Organized Health Care Education/Training Program; PCP Pediatrics
DX: O26.851 Spotting complicating pregnancy, first trimester (principal); O36.8310 Maternal care for abnormalities of the fetal heart rate or rhythm, first trimester, not applicable or unspecified; Z3A.01 Less than 8 weeks gestation of pregnancy
CPT/HCPCS: 36415; 76801; 80048; 80076; 81001; 83690; 84702; 85025; 86900; 86901; 99283; 99284

== ENCOUNTER 2022-08-25 21:35 | Emergency (ER) | payer OTHER, SELFPAY ==
--- NOTE | ~2022-08-25 | XR_ITS ---
EXAMINATION: XR FINGER, RIGHT CLINICAL INFORMATION: Injury to right thumb COMPARISON: None available. TECHNIQUE: 3 views of the right thumb. FINDINGS: The bones and soft tissues are normal. No fracture. Alignment is anatomic. Joint spaces are maintained. XR/XR finger RT min 2V IMPRESSION: Normal finger radiographs.
[2022-08-25 21:38] VITALS: BP 122/60; PULSE 100; RESP 17; TEMP 36.4; O2SAT 100; BMI 26.4
--- NOTE | 2022-08-25 22:48 | ED_ITS ---
HPI - Extremity Problem General Chief complaint: Extremity Injury, Upper Stated complaint: finger got stuck in machine @ work Time Seen by Provider: 08/25/22 22:31 Source: patient Mode of arrival: ambulatory Limitations: no limitations History of Present Illness HPI Narrative: 21-year-old female presents with right thumb pain. Symptoms happened prior to arrival. Her thumb got caught in a conveyor belt at work. Pain is [id number]. The pain is worse with movement. Does not radiate. There is no numbness or tingling. No prior treatment. No additional injuries. Related Data Allergies Allergy/AdvReac Type Severity Reaction Status Date / Time Penicillins [PCN] Allergy Unknown Verified 05/20/21 00:44 PMFSH Past Medical History Medical History Hx of scoliosis Social History Social History Patient Tobacco Use Status: Never used Tobacco Advance Directives: No Advance Directives Information Provided: No Physical Exam Vital Signs: Vital Signs: Last Vital Signs Temp 97.5 F 08/25/22 21:38 Pulse 100 08/25/22 21:38 Resp 17 08/25/22 21:38 BP 122/60 08/25/22 21:38 Pulse Ox 100 08/25/22 21:38 O2 Del Method Room Air 08/25/22 21:38 BMI result Body Mass Index 26.4 GEN: Well developed, no acute distress, alert, oriented HEENT: Normocephalic, atraumatic, normal external ears, nose appears normal Eyes: Normal to appearance Neck: Supple, no lymphadenopathy Respiratory: Talks in complete sentences, no respiratory distress Extremities: No clubbing cyanosis or edema, right thumb with ecchymotic areas to the distal phalanx of the right thumb. Neurovascular intact, normal capillary refill Neurologic: No focal neurologic deficits, cranial nerves 2-12 intact, gait n ormal Skin: No rash Course Course Course Narrative: Patient presents with right thumb pain after an injury at work. X-ray reveals no acute fractures. Patient most likely has a contusion to the right thumb. Patient can try Tylenol and ibuprofen as needed for pain, application of ice. Patient can follow-up with her primary care provider as needed. Medical Decision Making Medical Decision Making [facility] Narrative: Patient presents with injury to right thumb. Examination revealed no deformity. There was slight swelling and ecchymotic area to the right distal phalanx of the thumb. She was neurovascularly tach. There is no evidence of tendon injury. She was able flex and extend against resistance. Capillary refills less than 2 seconds. X-ray will be ordered to rule out fracture. Doubt to did injury Differential Diagnosis Differential Diagnoses: The differential diagnosis associated with the presentation includes (Contusion, sprain, strain, fracture) Contusion Independent Interpretation I performed an independent interpretation of an: Plain X-Ray (Right thumb no fracture) Prescription Management I considered prescription management with: Pain Medication Discharge Plan Discharge Clinical Impression: Contusion of right thumb Patient Disposition: Home, Self-Care Instructions: Contusion in Adults (ED) Additional Instructions: For pain, take Tylenol 1000 mg every 6 hours as needed for pain, ibuprofen 400- 600 mg every 6 hours as needed for pain, application of ice Referrals: Pretty Manzano MD [Primary Care Provider] - 1 week (if needed)
== END 2022-08-25 22:57 | disposition home or self-care (01) ==
PROVIDERS: Emergency Provider Emergency Medicine; PCP Pediatrics
DX: S60.011A Contusion of right thumb without damage to nail, initial encounter (principal); Y29.XXXA Contact with blunt object, undetermined intent, initial encounter; Y93.9 Activity, unspecified; Y92.9 Unspecified place or not applicable; Y99.0 Civilian activity done for income or pay
CPT/HCPCS: 73140; 99282; 99283

== ENCOUNTER 2022-09-19 17:36 | Emergency (ER) | payer OTHER, SELFPAY ==
--- NOTE | ~2022-09-19 | US_ITS ---
EXAMINATION: US OBSTETRICAL ULTRASOUND CLINICAL INFORMATION: Six-week with bleeding COMPARISON: OB ultrasound 05/01/2022 LMP: 08/04/2022. Gestational age by maternal dates is 6 weeks 4 days. Estimated date of delivery by maternal dates is 05/11/2023. TECHNIQUE: Both transabdominal endovaginal scanning was performed FINDINGS: A gestational sac is seen in the uterus with a yolk sac but a pole is not present. Based upon the gestational sac size, age would be 6 weeks 6 days. Right ovary measures 2.7 x 1.1 x 1.5 cm and appears normal. Left ovary measures 3.0 x 2.6 x 2.7 cm which includes a corpus luteal 1.1 x 1.4 x 1.3 cm benign cyst. No free fluid is present in the cul-de-sac. US/US OB pelvic and transvaginal IMPRESSION: A gestational sac is present without a pole. Correlation with beta hCG levels is recommended, as nonvisualization of a pole could be due to an early stage of . Alternatively, lack of pole may also be seen with missed or ectopic , although no adnexal mass is seen to strongly suggest ectopic . Short-term sonographic follow-up and serial beta hCG levels are recommended to assess for development of a pole.
[2022-09-19 17:45] VITALS: BP 136/65; PULSE 110; RESP 19; TEMP 36.6; O2SAT 98; BMI 25.4
--- NOTE | 2022-09-19 17:46 | ED_ITS ---
HPI - General Chief complaint: Vaginal Bleeding Stated complaint: 6 month , bleeding Time Seen by Provider: 09/19/22 21:52 Source: patient Mode of arrival: ambulatory Limitations: no limitations History of Present Illness HPI Narrative: Patient A2 6 weeks comes here for vaginal bleeding started earlier today bright red in color with slight suprapubic cramps patient is blood type O negative patient previous miscarriage was also less than 8 weeks patient has not seen any OB GI at plan to see in next 2 days Related Data Allergies Allergy/AdvReac Type Severity Reaction Status Date / Time Penicillins [PCN] Allergy Unknown Verified 09/19/22 17:45 Review of Systems Review of Systems: Yes all other systems are reviewed and are negative PMFSH Past Medical History Medical History Hx of scoliosis Social History Social History Patient Tobacco Use Status: Never used Tobacco Smoked in Last 30 Days: No Use of substances other than those prescribed or required for medical reasons: No Advance Directives: No Advance Directives Information Provided: No Patient : Yes Physical Exam Vital Signs: Vital Signs: Last Vital Signs Temp 98.2 F 09/19/22 22:54 Pulse 80 09/19/22 22:54 Resp 16 09/19/22 22:54 BP 118/63 09/19/22 22:54 Pulse Ox 98 09/19/22 22:54 O2 Del Method Room Air 09/19/22 22:54 BMI result Body Mass Index 25.4 Appearance: Alert. Oriented X3. No acute distress. Neck: Normal inspection. Neck supple. CVS: Normal heart rate and rhythm. Pulses normal. Respiratory: No respiratory distress. Equal air entry bilateral, Abdomen: Soft and nontender. Bowel sounds are present, no mass palpable, no CVA tenderness Skin: Skin warm and dry. Normal skin color. Normal skin turgor. Extremities: No lower extremity edema. No calf tenderness Neuro: Oriented X 3. Course Course Course Narrative: RME - 21 yo female currently 6 weeks (LMP 4/14) with history of 2 prior miscarriages who presents to the ER for evaluation of painless vaginal bleeding that started 1 hour ago. No passage of clots. Plan: OB ultrasound, blood type, blood work Medications Administered Discontinued Medications Generic Name Dose Route Start Last Admin Trade Name John PRN Reason Stop Dose Admin Rho Immune Globulin 300 mcg 09/19/22 21:59 09/19/22 22:35 Rho(D) Immune Globulin 300 Mcg Syringe IM 09/19/22 22:00 300 mcg ONCE ONE Administration Medical Decision Making Medical Decision Making [facility] Narrative: Patient with bending miscarriage gaseous sec was seen without any pole patient advised to follow-up with her OBG which she schedule in 2 days patient was given RhoGAM in the ER Lab Data [facility] Lab Attestation statement: I reviewed the patient's lab results. 09/19/22 17:54 09/19/22 17:54 Labs: Lab Results 09/19/22 09/19/22 09/19/22 Range/Units 17:54 17:54 17:54 WBC 7.6 (4.8-10.8) X10*3/uL RBC 4.26 (4.20-5.50) X10*6/uL Hgb 13.0 (12.0-16.0) g/dl Hct 36.6 L (37.0-47.0) % MCV 85.9 (80.0-98.0) fL MCH 30.5 (27.0-33.0) pg MCHC 35.5 H (31.0-35.0) g/dl RDW 11.6 (11.0-16.0) % Plt Count 260 (160-400) X10*3/uL MPV 10.6 (9.4-12.3) fL Immature Gran % (Auto) 0.3 (0.0-0.4) % Neut % (Auto) 66.7 (45-73) % Lymph % (Auto) 23.0 (20-40) % [place] % (Auto) 8.8 (2-11) % Eos % (Auto) 0.9 (0-4) % Baso % (Auto) 0.3 (0-2) % Lymph # (Auto) 1.8 (1.2-4.9) X10*3/uL [place] # (Auto) 0.7 (0.1-1.2) X10*3/uL Eos # (Auto) 0.1 (0.0-0.4) X10*3/uL Baso # (Auto) 0.0 (0.0-0.2) X10*3/uL Abs Immat Gran (auto) 0.02 (0.00-0.03) X10*3/uL Absolute Neuts (auto) 5.1 (2.0-8.3) x10*3/uL Absolute Nucleated RBC 0.000 (0.0-0.012) X10*3/uL Nucleated RBC % (auto) 0.0 (0.0-0.2) /100WBC Sodium 138 (135-145) mmol/L Potassium 3.8 (3.3-5.1) mmol/L Chloride 106 (96-108) mmol/L Carbon Dioxide 21 L (22-29) mmol/L Anion Gap 15 (12-20) BUN 6 L (9-16) mg/dL Creatinine 0.62 (0.5-1.4) mg/dL Estim Creat Clear Calc 116.2 Estimated GFR > 60 Random Glucose 88 (60-115) mg/dL Calcium 10.2 D (8.4-10.2) mg/dL Magnesium 2.0 (1.6-2.6) mg/dL Total Bilirubin 1.8 H (0.0-1.0) mg/dL Direct Bilirubin 0.4 (0.0-0.5) mg/dL AST 16 (5-31) U/L ALT 11 (0-31) U/L Alkaline Phosphatase 51 (39-117) U/L Total Protein 7.6 (6.5-8.0) g/dL Albumin 4.8 (3.5-5.0) g/dL Beta HCG, Quant 78515 mIU/mL Blood Type O Negative Radiology Impression Discussion of test interpretation with radiology: I have reviewed the radiologist's reading. Radiologist Impression: US/US OB pelvic and transvaginal IMPRESSION: ? A gestational sac is present without a pole. Correlation with beta hCG levels is recommended, as nonvisualization of a pole could be due to an early stage of . Alternatively, lack of pole may also be seen with missed or ectopic , although no adnexal mass is seen to strongly suggest ectopic . Short-term sonographic follow-up and serial beta hCG levels are recommended to assess for development of a pole. ? Discharge Plan Discharge Clinical Impression: Threatened Patient Disposition: Home, Self-Care Instructions: Threatened Miscarriage (ED) Additional Instructions: You likely having a miscarriage See your OBG in 2 days as scheduled Report to the ER if increase in vaginal bleed Your blood type is O negative and you have received RhoGAM in the ER today
[2022-09-19 18:01] LABS: MANUAL DIFF FLAG NO
[2022-09-19 18:31] LABS: Alanine Aminotransferase 11 U/L (0-31); Albumin Level 4.8 g/dL (3.5-5.0); Alkaline Phosphatase 51 U/L (39-117); Anion Gap 15 (12-20); Aspartate Amino Transferase 16 U/L (5-31); Bilirubin Direct 0.4 mg/dL (0.0-0.5); Bilirubin Total 1.8 mg/dL (0.0-1.0); Blood Urea Nitrogen 6 mg/dL (9-16); Calcium 10.2 mg/dL (8.4-10.2); Carbon Dioxide 21 mmol/L (22-29); Chloride 106 mmol/L (96-108); Creatinine Clr Calc Pharmacy 116.2; Estimated Glomerular Filt Rate > 60; Glucose Random 88 mg/dL (60-115); Potassium 3.8 mmol/L (3.3-5.1); Sodium 138 mmol/L (135-145); Total Protein 7.6 g/dL (6.5-8.0)
[2022-09-19 18:48] LABS: Basophils Percent Auto 0.3 % (0-2); Eosinophils Absolute Auto 0.1 X10*3/uL (0.0-0.4); Eosinophils Percent Auto 0.9 % (0-4); Hematocrit 36.6 % (37.0-47.0); Imm Gran Abs Auto 0.02 X10*3/uL (0.00-0.03); Imm Gran Pct Auto 0.3 % (0.0-0.4); Lymphocytes Absolute Auto 1.8 X10*3/uL (1.2-4.9); Mean Corpuscular HGB Conc 35.5 g/dl (31.0-35.0); Mean Corpuscular Hemoglobin 30.5 pg (27.0-33.0); Mean Corpuscular Volume 85.9 fL (80.0-98.0); Mean Platelet Volume 10.6 fL (9.4-12.3); Monocytes Absolute Auto 0.7 X10*3/uL (0.1-1.2); Monocytes Percent Auto 8.8 % (2-11); Neutrophils Absolute Auto 5.1 x10*3/uL (2.0-8.3); Neutrophils Percent Auto 66.7 % (45-73); Platelet Count 260 X10*3/uL (160-400); Red Blood Count 4.26 X10*6/uL (4.20-5.50); Red Cell Distribution Width 11.6 % (11.0-16.0); White Blood Count 7.6 X10*3/uL (4.8-10.8)
[2022-09-19] MEDS: Rho(D) Immune Globulin 300 MCG SYRINGE IM (22:35)
[2022-09-19 22:54] VITALS: BP 118/63; PULSE 80; RESP 16; TEMP 36.8; O2SAT 98
--- NOTE | 2022-09-19 23:21 | PC.NURSE ---
Rhogam administered according to mar. per dr liang give full dose. this rn completed rhogam packet that was included in rhogam kit. copy in chart copy to lab and copy to blood bank. nurse charge rn aware. pt calm and cooperative.
== END 2022-09-20 00:21 | disposition home or self-care (01) ==
PROVIDERS: Physician Assistant; Emergency Provider Internal Medicine
DX: O20.0 Threatened abortion (principal); O20.9 Hemorrhage in early pregnancy, unspecified; Z3A.01 Less than 8 weeks gestation of pregnancy
CPT/HCPCS: 36415; 76801; 76817; 80048; 80076; 83735; 84702; 85025; 86900; 86901; 96372; 99284; J2790

== ENCOUNTER 2022-10-30 12:29 | Day surgery (SDC) | payer OTHER, SELFPAY ==
[2022-10-30] VITALS (9 sets, daily range): BP systolic 94–123; BP diastolic 46–63; PULSE 67–95; RESP 14–18; TEMP 36.5–36.7; O2SAT 97–100; BMI 24.4
--- NOTE | ~2022-10-30 | US_ITS ---
EXAMINATION: INTRAOPERATIVE SONOGRAPHIC EVALUATION CLINICAL INFORMATION: COMPARISON: Pelvic ultrasound earlier today. TECHNIQUE: Intraoperative sonographic guidance provided to Dr. Patel. US/US guide intraoperative FINDINGS/IMPRESSION: with a probe projecting over the endometrial central canal. A radiologist was not present during this examination. Recommend correlation with intraoperative report for additional details.
--- NOTE | 2022-10-30 12:40 | ED_ITS ---
HPI - General Adult General Chief complaint: Vaginal Bleeding Stated complaint: Miscarriage 3 wks ago/Heavy bleeding Time Seen by Provider: 10/30/22 17:02 Source: patient Mode of arrival: ambulatory Limitations: no limitations History of Present Illness HPI narrative: Patient is a 22-year-old female G3 T0 L0, who underwent medical with methotrexate 10/20/2022 through [facility]. She reports that she had been experiencing small amount of dark brown bleeding. However since yesterday she has been having intermittent ?gushes of bleeding? of bright red blood with clots about 5-6 times daily. She reports that she received RhoGAM when she was last in the emergency department 09/19/2022. She denies any abdominal pain. Related Data Previous Rx's Medication Instructions Recorded metronidazole 500 mg tablet 500 mg PO BID #14 tabs 10/30/22 Allergies Allergy/AdvReac Type Severity Reaction Status Date / Time Penicillins [PCN] Allergy Unknown Verified 10/30/22 12:40 Review of Systems Review of Systems: Constitutional: No fever, chills, weakness or fatigue. Skin: No rash or itching. Cardiovascular: No chest pain, chest pressure or chest discomfort. No palpitations or pedal edema. Respiratory: No shortness of breath, cough or sputum production. Gastrointestinal: No nausea, vomiting or diarrhea. No abdominal pain or blood in stool. Genitourinary: Positive vaginal bleeding as per HPI. No burning micturition. No urinary frequency or incontinence. Musculoskeletal: No muscle pain, back pain, joint pain or stiffness. Psychiatric: No depression or anxiety. [facility] Past Medical History Attestation statement: The following information was validated with the patient. Source: old records reviewed Medical History Hx of scoliosis Social History Social History Patient Tobacco Use Status: Never used Tobacco Physical Exam ED Vital Signs: Vital Signs - 24 hr 10/30/22 12:40 10/30/22 18:00 10/30/22 19:45 Temperature 98 F 97.7 F Pulse Rate 77 76 95 Respiratory Rate 17 18 15 Blood Pressure 112/63 117/61 94/54 L Pulse Oximetry 97 100 100 Oxygen Delivery Method Room Air Room Air Simple Mask Oxygen Flow Rate 4 10/30/22 19:50 10/30/22 19:55 10/30/22 20:00 Temperature Pulse Rate 89 82 84 Respiratory Rate 16 14 16 Blood Pressure 111/60 102/53 L 104/54 L Pulse Oximetry 100 100 100 Oxygen Delivery Method Room Air Room Air Room Air Oxygen Flow Rate 10/30/22 20:15 10/30/22 20:30 10/30/22 20:45 Temperature 98.1 F Pulse Rate 77 67 70 Respiratory Rate 16 16 16 Blood Pressure 123/59 L 104/51 L 121/46 L Pulse Oximetry 100 100 100 Oxygen Delivery Method Room Air Room Air Room Air Oxygen Flow Rate BMI result Body Mass Index 24.4 Appearance: Alert.?Oriented to person, place and time. No acute distress.?Normal affect. Eyes: Pupils equal, round and reactive to light.? ENT: Pharynx normal.?? Neck: Normal inspection.? Neck supple.?? CVS: Heart sounds normal. Normal heart rate and rhythm.? Pulses normal.?? Respiratory: No respiratory distress.? Lung sounds clear to auscultation bilaterally?? Abdomen: Soft and non-tender. Normoactive bowel sounds. ?? Genitourinary: Performed by obstetrics Dr. Patel Skin: Skin warm and dry.? Skin appears pale for ethnicity.? Extremities: No lower extremity edema.? Neuro: Moves all extremities spontaneously. Sensation intact bilaterally. No focal neuro deficits. Ambulates with normal steady gait. Course Course Course Narrative: This is an RME: Additional HPI, ROS, PE not included below will be deferred to primary provider. Patient is a 22 year old female with a PMH of medication induced 2 weeks ago presenting with increased vaginal bleeding and lower abdominal pain. Patient reports increasing heaviness of bleeding. Patient denies fever, chills, chest pain, shortness of breath, numbness, tingling, vomiting. Plan: labs, imaging Reevaluation(s) Reevaluation #1: Ultrasound revealing thickening of the endometrium in the lower uterine segment and cervix with question of retained products of conception. Notable drop in H&H 10.1/29.1 respectively today, which is decreased from 13/36.6 respectively on 09/19/2022. I consulted with obstetrics [employer] architect; Dr. Patel, we reviewed patient case, he is coming to bedside for examination. Patient agreeable with plan of care at this time Time: 17:28 Reevaluation #2: Dr. Patel has evaluated patient, patient being transferred to operating room for suction D&C due to retained products of conception Time: 17:51 Medical Decision Making Medical Decision Making [facility] Narrative: Patient is a 22-year-old female presents emergency department for evaluation of increased vaginal bleeding with passage of clots in the setting of recent medication as per HPI. At the time my examination she is overall well- appearing. Abdominal examination is benign. Plan: Serum labs, pelvic ultrasound Differential Diagnosis Differential Diagnoses: The differential diagnosis associated with the presentation includes (retained products of conception, PID,) Admission/Observation Consideration of admission/observation: Escalation of care including admission/observation considered I considered admission for vaginal bleeding in the setting of recent medical and anemia. Please see course for further narrative Consult Healthcare Provider Management of the patient was discussed with: End Packer (As per course) Lab Data [facility] Lab Attestation statement: I reviewed the patient's lab results. (See course for further narrative) 10/30/22 14:00 10/30/22 14:00 Labs: Lab Results 10/30/22 10/30/22 10/30/22 Range/Units 13:59 14:00 14:00 WBC 6.1 (4.8-10.8) X10*3/uL RBC 3.33 L D (4.20-5.50) X10*6/uL Hgb 10.1 L D (12.0-16.0) g/dl Hct 29.1 L D (37.0-47.0) % MCV 87.4 (80.0-98.0) fL MCH 30.3 (27.0-33.0) pg MCHC 34.7 (31.0-35.0) g/dl RDW 11.9 (11.0-16.0) % Plt Count 218 (160-400) X10*3/uL MPV 9.3 L (9.4-12.3) fL Immature Gran % (Auto) 0.3 (0.0-0.4) % Neut % (Auto) 69.7 (45-73) % Lymph % (Auto) 21.6 (20-40) % [place] % (Auto) 6.3 (2-11) % Eos % (Auto) 1.6 (0-4) % Baso % (Auto) 0.5 (0-2) % Lymph # (Auto) 1.3 (1.2-4.9) X10*3/uL [place] # (Auto) 0.4 (0.1-1.2) X10*3/uL Eos # (Auto) 0.1 (0.0-0.4) X10*3/uL Baso # (Auto) 0.0 (0.0-0.2) X10*3/uL Abs Immat Gran (auto) 0.02 (0.00-0.03) X10*3/uL Absolute Neuts (auto) 4.2 (2.0-8.3) x10*3/uL Absolute Nucleated RBC 0.000 (0.0-0.012) X10*3/uL Nucleated RBC % (auto) 0.0 (0.0-0.2) /100WBC Sodium 139 (135-145) mmol/L Potassium 4.1 (3.3-5.1) mmol/L Chloride 107 (96-108) mmol/L Carbon Dioxide 23 (22-29) mmol/L Anion Gap 13 (12-20) BUN 5 L (9-16) mg/dL Creatinine 0.68 (0.5-1.4) mg/dL Estim Creat Clear Calc 103.2 Estimated GFR > 60 Random Glucose 97 (60-115) mg/dL Calcium 9.4 D (8.4-10.2) mg/dL Magnesium 2.1 (1.6-2.6) mg/dL Total Bilirubin 1.0 (0.0-1.0) mg/dL AST 12 (5-31) U/L ALT 7 (0-31) U/L Alkaline Phosphatase 59 (39-117) U/L Total Protein 7.1 (6.5-8.0) g/dL Albumin 4.3 (3.5-5.0) g/dL Beta HCG, Quant mIU/mL Blood Type O Negative Antibody Screen Antibody Identification Crossmatch (AHG) 10/30/22 10/30/22 Range/Units 14:00 18:59 WBC (4.8-10.8) X10*3/uL RBC (4.20-5.50) X10*6/uL Hgb (12.0-16.0) g/dl Hct (37.0-47.0) % MCV (80.0-98.0) fL MCH (27.0-33.0) pg MCHC (31.0-35.0) g/dl RDW (11.0-16.0) % Plt Count (160-400) X10*3/uL MPV (9.4-12.3) fL Immature Gran % (Auto) (0.0-0.4) % Neut % (Auto) (45-73) % Lymph % (Auto) (20-40) % [place] % (Auto) (2-11) % Eos % (Auto) (0-4) % Baso % (Auto) (0-2) % Lymph # (Auto) (1.2-4.9) X10*3/uL [place] # (Auto) (0.1-1.2) X10*3/uL Eos # (Auto) (0.0-0.4) X10*3/uL Baso # (Auto) (0.0-0.2) X10*3/uL Abs Immat Gran (auto) (0.00-0.03) X10*3/uL Absolute Neuts (auto) (2.0-8.3) x10*3/uL Absolute Nucleated RBC (0.0-0.012) X10*3/uL Nucleated RBC % (auto) (0.0-0.2) /100WBC Sodium (135-145) mmol/L Potassium (3.3-5.1) mmol/L Chloride (96-108) mmol/L Carbon Dioxide (22-29) mmol/L Anion Gap (12-20) BUN (9-16) mg/dL Creatinine (0.5-1.4) mg/dL Estim Creat Clear Calc Estimated GFR Random Glucose (60-115) mg/dL Calcium (8.4-10.2) mg/dL Magnesium (1.6-2.6) mg/dL Total Bilirubin (0.0-1.0) mg/dL AST (5-31) U/L ALT (0-31) U/L Alkaline Phosphatase (39-117) U/L Total Protein (6.5-8.0) g/dL Albumin (3.5-5.0) g/dL Beta HCG, Quant 370 mIU/mL Blood Type O Negative Antibody Screen POSITIVE Antibody Identification Anti-D Crossmatch (AHG) See Detail Radiology Impression Discussion of test interpretation with radiology: I have reviewed the radiologist's reading. Radiologist Impression: US/US OB pelvic and transvaginal IMPRESSION: Thickening of the endometrium in the lower uterine segment and cervix with question of retained products of conception. ? Discharge Plan Discharge Clinical Impression: Retained products of conception following Patient Disposition: Admitted As Inpatient Interventions: Admission Worksheet (ED) Last Done: 10/30/22 18:18 Discharge Date/Time: 10/30/22 18:18
[2022-10-30 14:05] LABS: MANUAL DIFF FLAG NO
[2022-10-30 14:06] LABS: Basophils Percent Auto 0.5 % (0-2); Eosinophils Absolute Auto 0.1 X10*3/uL (0.0-0.4); Eosinophils Percent Auto 1.6 % (0-4); Hematocrit 29.1 % (37.0-47.0); Hemoglobin 10.1 g/dl (12.0-16.0); Imm Gran Abs Auto 0.02 X10*3/uL (0.00-0.03); Imm Gran Pct Auto 0.3 % (0.0-0.4); Lymphocytes Absolute Auto 1.3 X10*3/uL (1.2-4.9); Lymphocytes Percent Auto 21.6 % (20-40); Mean Corpuscular HGB Conc 34.7 g/dl (31.0-35.0); Mean Corpuscular Hemoglobin 30.3 pg (27.0-33.0); Mean Corpuscular Volume 87.4 fL (80.0-98.0); Mean Platelet Volume 9.3 fL (9.4-12.3); Monocytes Absolute Auto 0.4 X10*3/uL (0.1-1.2); Monocytes Percent Auto 6.3 % (2-11); Neutrophils Absolute Auto 4.2 x10*3/uL (2.0-8.3); Neutrophils Percent Auto 69.7 % (45-73); Platelet Count 218 X10*3/uL (160-400); Red Blood Count 3.33 X10*6/uL (4.20-5.50); Red Cell Distribution Width 11.9 % (11.0-16.0); White Blood Count 6.1 X10*3/uL (4.8-10.8)
[2022-10-30 14:24] LABS: Alanine Aminotransferase 7 U/L (0-31); Albumin Level 4.3 g/dL (3.5-5.0); Alkaline Phosphatase 59 U/L (39-117); Anion Gap 13 (12-20); Aspartate Amino Transferase 12 U/L (5-31); Blood Urea Nitrogen 5 mg/dL (9-16); Calcium 9.4 mg/dL (8.4-10.2); Carbon Dioxide 23 mmol/L (22-29); Chloride 107 mmol/L (96-108); Creatinine Clr Calc Pharmacy 103.2; Estimated Glomerular Filt Rate > 60; Glucose Random 97 mg/dL (60-115); Magnesium 2.1 mg/dL (1.6-2.6); Potassium 4.1 mmol/L (3.3-5.1); Sodium 139 mmol/L (135-145); Total Protein 7.1 g/dL (6.5-8.0)
--- NOTE | 2022-10-30 17:48 | P.CONOB_ITS ---
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 Gary Short who is a 22-year-old female Para [id number], who underwent medical on 10/20/2022 through [facility].? the patientreports having passage of blood clots and tissues in cramping that subsides few hours after taking the vaginal misoprostol, and her symptoms subsided for to coming 2 days then she started having persistent pelvic cramping and vaginal bleeding since then. Rh is negative, the patient received RhoGAM on 09/19. 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 - Review of Systems Review of Systems ROS Unobtainable: All systems reviewed & are unremarkable except as noted in HPI and below Cardiovascular: Denies Palpatations, Loss of consciousness or Chest pain Respiratory: Denies Cough, Wheezing or Shortness of breath Musculoskeletal: Denies Low back pain Gastrointestinal: Denies Heartburn, Constipation, Diarrhea, Nausea or Vomiting Genitourinary: Denies Pain with urination, Burning with urination or Urinary frequency Neurological: Denies Migranes Psychological: Denies Depression OB PMFSH Past Medical History Medical History Hx of scoliosis Social History Social History Patient Tobacco Use Status: Never used Tobacco Meds Allergies Allergy/AdvReac Type Severity Reaction Status Date / Time Penicillins [PCN] Allergy Unknown Verified 10/30/22 12:40 Active Medications: Current Medications Doxycycline Monohydrate (Doxycycline Monohydrate 100 Mg Capsule) 200 mg PO ONCE ONE Stop: 10/30/22 17:48 VICTORIAN LITERATURE PROFESSOR Physical Exam Vitals Vital signs: Temp Pulse Resp BP Pulse Ox O2 Del Method 98 F 77 17 112/63 97 Room Air 10/30/22 12:40 10/30/22 12:40 10/30/22 12:40 10/30/22 12:40 10/30/22 12:40 10/30/22 12:40 BMI result Body Mass Index 24.4 Constitutional General Appearance: Healthy appearing, Well-nourished and Well-developed Psychiatric Mood and Affect: active and alert, normal mood and normal affect Skin Appearance: No rashes and No lesions Lungs Respiratory Effort: No intercostal retractions Auscultation: Clear to auscultation Cardiovascular Auscultation: RRR Abdomen Auscultation/Inspection/Palpation: Normal bowel sounds, Soft, Non-distended and No tenderness Female Genitalia (Pelvic) Vulva: No lesions Uterus: Nontender Adnexa/Parametria: Adnexal Tenderness: None, Adnexal Mass: None, Parametrial Tenderness: None and Parametrial Mass: None Additional Comments: cervix is open, active vaginal bleeding VICTORIAN LITERATURE PROFESSOR - Results Labs 10/30/22 14:00 10/30/22 14:00 Labs: Short CBC 10/30/22 Range/Units 14:00 WBC 6.1 (4.8-10.8) X10*3/uL Hgb 10.1 L D (12.0-16.0) g/dl Hct 29.1 L D (37.0-47.0) % Plt Count 218 (160-400) X10*3/uL BMP 10/30/22 14:00 Sodium 139 Potassium 4.1 Chloride 107 Carbon Dioxide 23 BUN 5 L Creatinine 0.68 Calcium 9.4 D Liver Function 10/30/22 Range/Units 14:00 Total Bilirubin 1.0 (0.0-1.0) mg/dL AST 12 (5-31) U/L ALT 7 (0-31) U/L Alkaline Phosphatase 59 (39-117) U/L Albumin 4.3 (3.5-5.0) g/dL Imaging US - abdomen: Radiologist's impression: ITS Impressions Pelvic/Transvag US 10/30/22 13:13 IMPRESSION: Thickening of the endometrium in the lower uterine segment and cervix with question of retained products of conception. Assessment and Plan (1) Retained products of conception following : Status: Resolved GC/CT with BV panel and Trichomonas collected. Discussed with the patient the clinical scenario and the result of the ultrasound showing can not endometrium, post suspicious for retained products of conception, the options of the treatment werediscussed with the patient including medical treatment , suction D&C, all pros, cons, risks and benefits were discussed with the patient and the patient the decided to go ahead with Suction D&C. so a more detailed discussion about the procedure was carried on with the patient including the technique, risks including but not limited to : bleeding, infection, uterine perforation, injury to blood vessels, bowels, ureters, bladder, possible need for blood transfusion with all its risks ( HIV, Hep b or C, anaphylaxis reactions), possible need for laparoscopy, laparotomy, or hysterectomy, possible , thromboembolic events, possibility of a negative impact on future fertility because of scar tissue development inside the uterus; alternatives of this option were discussed with the patient including but not limited to, medical termination of or doing nothing. The patient decided to go ahead with Suction D&C and signed the consent. All questions answered, the patient verbalized understanding and agreed with the plan. Doxycycline 200 mg p.o. preop given to the patient. Ultrasound notified. The patient is Rh negative , received RhoGAM on 09/19/2022, antibody screen ordered. Instructions given the patient to schedule a 2 week postoperative a ppointment. Since the patient H&H dropped from previous ER visit on 09/19 and is actively bleeding in addition to evidence retained products of conception, this is an urgent suction D&C. This note was generated with a voice recognition program. Some errors may have been overlooked during the review of this note. Sometimes these errors may affect the content or meaning of a given sentence. Time Spent With Patient Time: Total time managing care of this patient today ____ minutes.
--- NOTE | 2022-10-30 18:14 | P.CONAN_ITS ---
HPI - Anesthesia Eval Consult details Narrative: 22 F for emergent D and C for retained products of conceptions. Scoliosis PMFSH Active Problems Active Problems: All Active Problems (Updated 10/30/22 @ 18:05 by Isaac Patel MD) Retained products of conception following (Acute) Past Medical History Medical History Hx of scoliosis Family History Family history of problems with anesthesia: No Surgical History History of Problems with Anesthesia: No Social History Social History Patient Tobacco Use Status: Never used Tobacco Advance Directives: No Advance Directives Information Provided: Yes Meds Allergies Allergy/AdvReac Type Severity Reaction Status Date / Time Penicillins [PCN] Allergy Unknown Verified 10/30/22 12:40 Exam Exam Date and Time: October 30, 20221813 Height,Weight and Vital Signs: Height 5 ft Weight 56.699 kg Last Vital Signs Temp 98 F 10/30/22 12:40 Pulse 76 10/30/22 18:00 Resp 18 10/30/22 18:00 BP 117/61 10/30/22 18:00 Pulse Ox 100 10/30/22 18:00 O2 Del Method Room Air 10/30/22 18:00 Pertinent Lab Results Pertinent Lab Results: Laboratory Tests 10/30/22 10/30/22 10/30/22 13:59 14:00 14:00 WBC 6.1 RBC 3.33 L D Hgb 10.1 L D Hct 29.1 L D MCV 87.4 MCH 30.3 MCHC 34.7 RDW 11.9 Plt Count 218 MPV 9.3 L Immature Gran % (Auto) 0.3 Neut % (Auto) 69.7 Lymph % (Auto) 21.6 Randall % (Auto) 6.3 Eos % (Auto) 1.6 Baso % (Auto) 0.5 Lymph # (Auto) 1.3 Randall # (Auto) 0.4 Eos # (Auto) 0.1 Baso # (Auto) 0.0 Abs Immat Gran (auto) 0.02 Absolute Neuts (auto) 4.2 Absolute Nucleated RBC 0.000 Nucleated RBC % (auto) 0.0 Sodium 139 Potassium 4.1 Chloride 107 Carbon Dioxide 23 Anion Gap 13 BUN 5 L Creatinine 0.68 Estim Creat Clear Calc 103.2 Estimated GFR > 60 Random Glucose 97 Calcium 9.4 D Magnesium 2.1 Total Bilirubin 1.0 AST 12 ALT 7 Alkaline Phosphatase 59 Total Protein 7.1 Albumin 4.3 Beta HCG, Quant Blood Type O Negative 10/30/22 14:00 WBC RBC Hgb Hct MCV MCH MCHC RDW Plt Count MPV Immature Gran % (Auto) Neut % (Auto) Lymph % (Auto) Randall % (Auto) Eos % (Auto) Baso % (Auto) Lymph # (Auto) Randall # (Auto) Eos # (Auto) Baso # (Auto) Abs Immat Gran (auto) Absolute Neuts (auto) Absolute Nucleated RBC Nucleated RBC % (auto) Sodium Potassium Chloride Carbon Dioxide Anion Gap BUN Creatinine Estim Creat Clear Calc Estimated GFR Random Glucose Calcium Magnesium Total Bilirubin AST ALT Alkaline Phosphatase Total Protein Albumin Beta HCG, Quant 370 Blood Type Airway Mallampati Class: III Neck ROM: Full Loose/Missing/Broken Teeth: Yes Assessment and Plan Assessment Anesthesia Assessment: Anesthesia Plan Discussed and Chart Reviewed Final Anesthetic Review Family History of Problems with Anesthesia: No History of Problems with Anesthesia: No NPO: Yes ASA Class: I, II and Emergency Final Preanesthetic Review: Meds/Allgs Chart Reviewed, Consent Obtained/Reviewed and Anes Risks/Benef Reviewed Patient Risk: High Procedure Risk: Intermediate Anesthetic Plan Anesthetic Plan: GA Disposition: Standard PACU
--- NOTE | 2022-10-30 19:01 | P.BOP_ITS ---
Brief Operative Note Date of Service: 10/30/22 Pre-op diagnosis: Retained products of conception Post-op diagnosis: same Procedure: Suction D&C Surgeon: Isaac Patel MD Anesthesia: GETA and MAC Was an Printing Sales Representative used for this Procedure?: No Estimated blood loss (mL): 100 Pathology: other ( retainedProducts of conception) Condition: stable Disposition: PACU
--- NOTE | 2022-10-30 19:02 | P.OP_ITS ---
Operative Note Operative Note Date of Service: 10/30/22 Narrative: Preop diagnosis: retained products of conception Operation: suction D and C Postop diagnosis: The same EBL: Minimal Anesthesia: MAC Hockey Scout: None Pathology: Products of conception Procedure: The patient was put in a dorsal distal mid position was scrubbed and draped in the usual sterile fashion. A sterile speculum was inserted inside the patient's vagina the anterior lip of the cervix was grasped with single-tooth tenaculum the cervix was dilated up to 7 mm. Under ultrasonographic guidance flexible 7. Suction tip was introduced inside the patient ran cavity till the fundus was hit then turning the suction 360 degrees around products of conception was sucked out toward the uterine cavity. The suction tip was taken out of the patient uterine cavity sharp curettings was followed in 4 quadrants of the uterus till a gritty feeling was felt. The suction tip was reintroduced under ultrasonographic guidance and intrauterine blood was sucked. The suction tip was taken out. Single-tooth tenaculum was removed hemostasis assured using pressure. The patient tolerated the procedure well and was transferred to the PACU in a stable condition.
[2022-10-31 11:28] LABS: CT PCR NOT DETECTED (Not Detect.); NG PCR NOT DETECTED (Not Detect.)
[2022-10-31 12:09] LABS: BV Int Neg Control Negative (Negative); BV Int Pos Control Positive (Positive)
== END 2022-10-30 21:20 | disposition home or self-care (01) ==
LOC: HO.ED 17:20 → HO.SSS 18:16
PROVIDERS: Obstetrics & Gynecology; Physician Assistant; Emergency Provider Internal Medicine; Visit Provider Nurse Practitioner Family
PROC: (CPT 59812; principal; 2022-10-30 17:55)
DX: O03.1 Delayed or excessive hemorrhage following incomplete spontaneous abortion (principal); Z88.0 Allergy status to penicillin
CPT/HCPCS: 59812; 0353U; 36415; 76801; 76817; 76998; 80053; 83735; 84702; 85025; 86850; 86870; 86900; 86901; 86920; 86922; 87480; 87510; 87660; 88305; 99285; J2250; J2590; J3010

== ENCOUNTER → 2022-10-30 18:00 | Outpatient (BNV) | payer OTHER, SELFPAY | PROVIDERS: Emergency Provider Internal Medicine; Visit Provider Obstetrics & Gynecology | DX: O03.4 Incomplete spontaneous abortion without complication (principal) | CPT/HCPCS: 59812; 99283 ==

== ENCOUNTER 2022-10-31 08:00 | Outpatient (REF) | payer OTHER, SELFPAY | END 2022-10-31 08:01 | disposition home or self-care (01) | LOC: HO.LNP 08:00 | PROVIDERS: Visit Provider Obstetrics & Gynecology | DX: Z13.89 Encounter for screening for other disorder (principal) ==